=== PATIENT | male | born 1930 | race Caucasian/White ===

== ENCOUNTER → 2020-09-16 | Emergency (ER) | payer MEDICARE, OTHER ==
[~2020-09-16] VITALS: Ht 177.8 cm; Wt 76.0 kg
[~2020-09-16] MED LIST: IV NORMAL SALINE 1,000ML 1,000 ML IV ONE; IV NORMAL SALINE 250ML 250 ML ONE; PHYTONADIONE 10 MG/ML AMPUL. ONE
--- NOTE | 2020-09-16 15:08 | PHYS DOC ---
General Adult EDM: Chief Complaint: MECHANICAL FALL HPI: HPI: Patient is a 89-year-old male brought in by EMS after being found down in the grocery store. Patient was getting groceries and fell near the frozen foods. The fall was unwitnessed and patient does not seem to remember the fall. He denies any pain. Normally ambulates without assistance. States he was not blood thinners but stopped them in June. History of a pacemaker. Patient is alert and oriented on arrival and answering questions appropriately. Last tetanus about a year ago. Denies any other pain or complaints. Review of Systems: Review of Systems: All other systems within normal limits except for as noted in the HPI Allergies: Allergies: Allergies Coded Allergies Type Severity Reaction Last Updated Verified No Known Drug Allergies 09/16/20 No Physical Exam: PE: Constitutional: Well developed, well nourished, no acute distress, non-toxic appearance. [] HENT: Normocephalic, left occipital scalp hematoma, left orbital hematoma, left eye closed secondary to edema, bilateral external ears normal, nose normal. [] Eyes: PERRLA, conjunctiva normal, no discharge. Right eye normal, unable to assess left eye secondary swelling [] Neck: No rigidity, supple, no stridor. [No tenderness] Cardiovascular: Regular rate and rhythm, brisk cap refill [] Lungs & Thorax: Non labored symmetric respirations, no tachypnea or respiratory distress [] Abdomen: Soft, nondistended. Skin: Warm, dry, no erythema, no rash. [] Back: Unremarkable, no tenderness, step-offs or deformities. Extremities: No deformities, range of motion grossly intact, no lower extremity edema. Upper and lower extremities without deformity and nontender to palpation [] Neurologic: Alert and oriented X 3, no focal deficits noted. [] Psychologic: Affect normal, judgement normal, mood normal. [] EKG: EKG: Irregular wide-complex rhythm, indeterminate axis, no obvious ST elevation or depression, occasional pacer spikes [] Radiology/Procedures: Radiology/Procedures: EXAM: Head and maxillofacial bone CT without contrast; cervical spine CT without contrast. HISTORY: Fall. TECHNIQUE: Computed tomographic images of the head, maxillary facial bones and cervical spine were obtained without contrast. *One or more of the following individualized dose reduction techniques were utilized for this examination: 1. Automated exposure control. 2. Adjustment of the mA and/or kV according to patient size. 3. Use of iterative reconstruction technique. COMPARISON: None. FINDINGS: Head: There is a large acute subdural hematoma along the left cerebral convexity measuring approximately 1.3 cm in thickness. There is also acute subdural hemorrhage along the right cerebral convexity measuring approximately 5 mm in thickness. There is subdural hemorrhage along the falx to left of midline measuring 7 mm in thickness. There is acute subarachnoid hemorrhage along the left cerebral sulci and right frontal cerebral sulci. There is partial effacement of the left lateral ventricle an left cerebral sulci and there is 4 mm rightward midline shift. There is a large overlying left scalp soft tissue hematoma and there is a left periorbital soft tissue hematoma. There are cerebral white matter changes, likely due to chronic small vessel d isease. There is cerebral volume loss with increased extra-axial space. The mastoid air cells are clear. The temporomandibular joints are intact. Maxillofacial bones: There is a left periorbital soft tissue hematoma. No acute maxillary facial bone fracture is seen. There is evidence of lens surgery. The ostiomeatal units are patent. There is no significant nasal septal deviation. Cervical spine: There is mild chronic decreased vertebral body height at multiple cervical levels. There are superimposed mild chronic compression deformities of C7 and T1. There is severe endplate remodeling with disc space narrowing, osteophytosis and Schmorl's node formation at the mid lower cervical levels. There is multilevel facet arthropathy. There is no suspicious osseous lesion. The combination of degenerative changes results in moderate right foraminal stenosis at C3-C4, severe right greater than left foraminal and mild central canals of cysts at C4-C5, moderate to severe right greater than left foraminal and mild canal stenosis at C5-C6 and mild right foraminal stenosis at C7-T1. There are cardiac pacemaker leads. No pneumothorax is seen. The airways widely patent. There is calcified atherosclerotic plaque within the carotid bifurcations. IMPRESSION: 1. Large acute subdural hematoma along the left cerebral convexity and small acute subdural hematomas along the right cerebral convexity and falx. There is associated left greater than right cerebral subarachnoid hemorrhage and mild effacement of the left lateral ventricle and cerebral sulci with 4 mm rightward midline shift. No convincing intraparenchymal hemorrhage is seen. 2. Large left scalp and left periorbital soft tissue hematomas. No fracture is seen. 3. Bilateral cerebral white matter changes, likely due to chronic small vessel disease. This is superimposed on cerebral volume loss. 4. 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 5. Chronic appearing compression deformities at C7 and T1. There is no evidence of acute cervical spine trauma. Findings were discussed with Dr. Elizabeth at 1520 hours on 09/16/2020.[] Heart Score: C/O Chest Pain: No Risk Factors: Risk Factors: DM, Current or recent (<one month) smoker, HTN, HLP, family history of CAD, obesity. Risk Scores: Score 0 - 3: 2.5% MACE over next 6 weeks - Discharge Home Score 4 - 6: 20.3% MACE over next 6 weeks - Admit for Clinical Observation Score 7 - 10: 72.7% MACE over next 6 weeks - Early Invasive Strategies Course & Med Decision Making: Course & Med Decision Making Pertinent Labs and Imaging studies reviewed. (See chart for details) Called CT after imaging reveals obvious large intraperitoneal hemorrhage. Elevated head of bed and discussed with 5, she is requesting [facility] for transfer. Contacted [facility] which declined patient. decided to go to [facility] on the [address]. Patient will be airlifted via helicopter. Discussed with transfer team Dr. Alvarado and Dr. Menjivar. Initial requesting pretreatment of patient's INR and platelets. Discussed and will be a delay in patient transfer. Discussed with transfer and he agrees with air for left and not delaying patient care. Patient is maintaining airway but has slightly garbled speech per but still able to speak in full sentences. Discussed possible airway protection but he sees patient is protecting his airway at this time and intubation paralyzed sedation would interfere with continued neuro exams. [] Dragon Disclaimer: Dragon Disclaimer: This electronic medical record was generated, in whole or in part, using a voice recognition dictation system. Departure Departure: Impression: Primary Impression: Fall Additional Impressions: Subdural hemorrhage, traumatic Subarachnoid hemorrhage, traumatic Disposition: 02 SHORT TERM HOSPITAL Condition: CRITICAL PRISCILLA ELIZABETH MD Sep 16, 2020 15:08
--- NOTE | 2020-09-16 15:36 | RAD ---
EXAM: Head and maxillofacial bone CT without contrast; cervical spine CT without contrast. HISTORY: Fall. TECHNIQUE: Computed tomographic images of the head, maxillary facial bones and cervical spine were ob tained without contrast. *One or more of the following individualized dose reduction techniques were utilized for this examina tion: 1. Automated exposure control. 2. Adjustment of the mA and/or kV according to patient size. 3. Use of iterative reconstruction technique. COMPARISON: None. FINDINGS: Head: There is a large acute subdural hematoma along the left cerebral convexity measuring approximat lorin 1.3 cm in thickness. There is also acute subdural hemorrhage along the right cerebral convexity m easuring approximately 5 mm in thickness. There is subdural hemorrhage along the falx to left of midl ine measuring 7 mm in thickness. There is acute subarachnoid hemorrhage along the left cerebral sulci and right frontal cerebral sulci. There is partial effacement of the left lateral ventricle an left cerebral sulci and there is 4 mm ri ghtward midline shift. There is a large overlying left scalp soft tissue hematoma and there is a left periorbital soft tissue hematoma. There are cerebral white matter changes, likely due to chronic sma ll vessel disease. There is cerebral volume loss with increased extra-axial space. The mastoid air ce lls are clear. The temporomandibular joints are intact. Maxillofacial bones: There is a left periorbital soft tissue hematoma. No acute maxillary facial bone fracture is seen. There is evidence of lens surgery. The ostiomeatal units are patent. There is no s ignificant nasal septal deviation. Cervical spine: There is mild chronic decreased vertebral body height at multiple cervical levels. Th ere are superimposed mild chronic compression deformities of C7 and T1. There is severe endplate saloni deling with disc space narrowing, osteophytosis and Schmorl's node formation at the mid lower cervica l levels. There is multilevel facet arthropathy. There is no suspicious osseous lesion. The combinati on of degenerative changes results in moderate right foraminal stenosis at C3-C4, severe right greate r than left foraminal and mild central canals of cysts at C4-C5, moderate to severe right greater marino n left foraminal and mild canal stenosis at C5-C6 and mild right foraminal stenosis at C7-T1. There a re cardiac pacemaker leads. No pneumothorax is seen. The airways widely patent. There is calcified at herosclerotic plaque within the carotid bifurcations. IMPRESSION: 1. Large acute subdural hematoma along the left cerebral convexity and small acute subdural hematomas along the right cerebral convexity and falx. There is associated left greater than right cerebral boyle barachnoid hemorrhage and mild effacement of the left lateral ventricle and cerebral sulci with 4 mm rightward midline shift. No convincing intraparenchymal hemorrhage is seen. 2. Large left scalp and left periorbital soft tissue hematomas. No fracture is seen. 3. Bilateral cerebral white matter changes, likely due to chronic small vessel disease. This is super imposed on cerebral volume loss. 4. 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 5. Chronic appearing compression deformities at C7 and T1. There is no evidence of acute cervical spi ne trauma. Findings were discussed with Dr. Elizabeth at 1520 hours on 09/16/2020. FOR INTERNAL CODING PURPOSES RESULT CODE: (C) Electronically signed by: Madelyn Burris MD (09/16/2020 3:33 PM) [id number]
[2020-09-16 15:46] LABS: BASO % 0 % (0-3); EOS % 0 % (0-3); HEMATOCRIT 35.1 % (39.0-53.0); HEMOGLOBIN 11.5 g/dL (13.0-17.5); LYMPH # 0.3 x10^3/uL (1.0-4.8); LYMPH % 5 % (24-48); MEAN CORPUSCULAR HEMOGLOBIN 32 pg (25-35); MEAN CORPUSCULAR HGB CONC 33 g/dL (31-37); MEAN CORPUSCULAR VOLUME 98 fL (79-100); MONO # 0.5 x10^3/uL (0.0-1.1); MONO % 9 % (0-9); NEUT # 5.1 x10^3uL (1.8-7.7); NEUT % 85 % (31-73); PLATELET COUNT 113 x10^3/uL (140-400); RED BLOOD COUNT 3.59 x10^6/uL (4.30-5.70); RED CELL DISTRIBUTION WIDTH 17.7 % (11.5-14.5); WHITE BLOOD COUNT 5.9 x10^3/uL (4.0-11.0)
[2020-09-16 15:52] LABS: CALCIUM 8.3 mg/dL (8.5-10.1); CREATININE 1.2 mg/dL (0.7-1.3); POTASSIUM 4.4 mmol/L (3.5-5.1)
[2020-09-16 15:58] LABS: ALBUMIN 3.6 g/dL (3.4-5.0); ALBUMIN/GLOBULIN RATIO 1.3 (1.0-1.7); TOTAL BILIRUBIN 1.2 mg/dL (0.2-1.0); TOTAL PROTEIN 6.3 g/dL (6.4-8.2)
[2020-09-16 16:00] VITALS: BP 147/70
--- NOTE | 2020-09-16 16:04 | EKG ---
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
== END ==
LOC: ER 14:43
DX: S06.5X0A Traumatic subdural hemorrhage without loss of consciousness, initial encounter (principal); S06.6X9A Traumatic subarachnoid hemorrhage with loss of consciousness of unspecified duration, initial encounter; W18.39XA Other fall on same level, initial encounter; Y93.89 Activity, other specified; Y92.89 Other specified places as the place of occurrence of the external cause; Y99.8 Other external cause status
CPT/HCPCS: 36415; 70450; 70486; 72125; 80053; 84484; 85025; 85610; 93005; 99285; J7030; 96360